=== PATIENT | female | born 1965 | race Caucasian/White ===

== ENCOUNTER → 2018-10-30 | Outpatient (CLI) | payer BC, OTHER ==
[~2018-10-30] MED LIST: 5-HY100C3 PO; ACET-1697 PO; ACET-2469 PO; ACET-2650 PO; ALBUNEBRX IH; ASPI-266 PO; ASPI-808 PO; ASPI-999 PO; ATOR40TA PO; BLAC20TA PO; BSP10T PO; CA C1TAB26 PO; CALC-787 PO; CALC-80 PO; CALC-83 PO; CETI10TA17 PO; CHOL100011 PO; CHOL10003 PO; CHOL200035 PO; CITA-105 PO; CITA40TA19 PO; CLNZ.5T PO; CLOP75TA28 PO; CPR500T PO; ESTR1TAB24 PO; FLUT1DIS26 IH; MELA10TA2 PO; METO-387 PO; MULT-608 PO; MULT-963 PO; NAPR-243 PO; OMEG1CAP51 PO; ONDA8TAB2 PO; OXYC-12 PO; PNT40TEC PO; POLY119P PO; QUET300T PO; QUET400T3 PO; TIOT18CA2 IH; TRAM50TA2 PO; [UNRECOGNIZED DRUG - CODE] PO
== END ==
LOC: CARD 12:09
PROVIDERS: ATTEND Internal Medicine Cardiovascular Disease
DX: J43.8 Other emphysema (principal); R07.89 Other chest pain; R00.2 Palpitations; I31.3 Pericardial effusion (noninflammatory); Z72.0 Tobacco use
CPT/HCPCS: 93225; 93226

== ENCOUNTER 2018-10-31 09:37 | Day surgery (SDC) | payer BC ==
[2018-10-31] VITALS (11 sets, daily range): BP systolic 109–138; BP diastolic 68–85
[~2018-10-31] VITALS: Ht 160 cm; Wt 56.2 kg
[~2018-10-31 09:37] MED LIST changes: -5-HY100C3 PO; -ACET-2469 PO; -ACET-2650 PO; -ASPI-808 PO; -ASPI-999 PO; -ATOR40TA PO; -BLAC20TA PO; -CLOP75TA28 PO; -MELA10TA2 PO; -METO-387 PO
--- OUTSIDE RECORDS SUMMARY | 2018-10-31 09:41 | XMS REPORT ---
Author ALFRED [facility] eClinicalWorks Address Unknown Phone Unavailable Care Team Providers Care Avionic Technician Name Role Phone ALFRED CASTANEDA CP Unavailable Allergies, Adverse Reactions, Alerts Substance Reaction Event Type Sulfamethoxazole Info Not Available Drug Allergy Penicillamine Info Not Available Drug Allergy Keflex Info Not Available Drug Allergy Iodine Info Not Available Drug Allergy Ibuprofen Info Not Available Drug Allergy Erythromycin Base Info Not Available Drug Allergy Shellfish Info Not Available Non Drug Allergy Problems Problem Type Condition Code Onset Dates Condition Status Assessment Hematuria, unspecified R31.9 Active Medications Medication Code System Code Instructions Start Date End Date Status Dosage Multivital [facility] [id number] - Orally not defined Anoro Ellipta [facility] [address]-32 62.5-25 MCG/INH Inhalation Once a day Sep 17, 2016 1 puff Zyrtec Allergy [facility] [address]-99 10 MG Orally Once a [place] 1 [place] [address]-87 1000 MG Orally Once a day 1 capsule Tylenol 8 Hour [facility] [address]-26 650 MG Orally every 8 hrs 2 tablets as needed Estroven ND 0 - Orally not defined Procedures Procedure Coding System Code Date Office Visit, Est Pt., Level 3 CPT-4 91173 Sep 17, 2016 URINALYSIS, AUTO, W/O SCOPE CPT-4 64808 Sep 17, 2016 Vital Signs Date/Time: Sep 17, 2016 Cardiac Monitoring Heart Rate 104 bpm Weight 146.8 lbs Height 63 in BMI 26.00 Index Blood Pressure Diastolic 81 mmHg Blood Pressure Systolic 117 mmHg Results Name Result Date Reference Range Unit Abnormality Flag UA LONG DIP (IN HOUSE) ----WALLY Negative 20160917 ----NIT Negative 20160917 ----Exp date 20160917 ----Lot # [id number] ----SG 1.020 20160917 ----KET Negative 20160917 ----KELIN Negative 20160917 ----GLU Negative 20160917 ----Odor None 20160917 ----pH 6.5 20160917 ----BLO Trace-Intact 20160917 ----URO 0.2 20160917 ----Protein Negative 20160917 ----Lot # [id number] ----Exp date 20160917 ----Clarity Clear 20160917 ----Color Yellow [id number] Summary Purpose eClinicalWorks Submission
--- OUTSIDE RECORDS SUMMARY | 2018-10-31 09:41 | XMS REPORT ---
Author Author ALFRED CASTANEDA Organization [facility] Address [address] [place] [address] Care Team Providers Care Spanish Interpreter Name Role Phone ALFRED CASTANEDA Unavailable PROBLEMS Type Condition ICD9-CM Code ZOU92-VA Code Onset Dates Condition Status SNOMED Code Assessment Urinary tract infection, site not specified N39.0 Jul, Active 54454785 Assessment Hematuria, unspecified R31.9 Jul, Active 17372996 ALLERGIES Substance Reaction Event Type Date Status N.K.D.A. Unknown Non Drug Allergy Jul, Unknown SOCIAL HISTORY No smoking Hx information available PLAN OF CARE VITAL SIGNS Height 63 in 2016-07-30 Weight 147.4 lbs 2016-07-30 Heart Rate 108 bpm 2016-07-30 Respiratory Rate 18 2016-07-30 BMI 26.11 kg/m2 2016-07-30 Blood pressure systolic 144 mmHg 2016-07-30 Blood pressure diastolic 92 mmHg 2016-07-30 MEDICATIONS Medication Instructions Dosage Frequency Start Date End Date Duration Status Estroven - Active Tylenol 8 Hour 650 MG Orally every 8 hrs 2 tablets as needed 8h Active Fish Oil 1000 MG Orally Once a day 1 capsule 24h Active Zyrtec Allergy 10 MG Orally Once a day 1 tablet 24h Active Multivital - Active Macrobid 100 MG Orally every 12 hrs 1 capsule with food 12h Jul, Jul, 7 day(s) Active RESULTS Name Result Date Reference Range UA LONG DIP (IN HOUSE) 2016-07-30 Lot # [id number] Exp date 06/2017 Clarity Clear Color Yellow Odor None GLU Negative KELIN Negative KET Negative SG 1.010 BLO Trace-Lysed pH 7.0 Protein Negative URO 0.2 NIT Negative WALLY Negative Lot # Exp date PROCEDURES Procedure Date Ordered Related Diagnosis Body Site Office Visit, Est Pt., Level 3 Jul 30, 2016 URINALYSIS, AUTO, W/O SCOPE Jul 30, 2016 IMMUNIZATIONS No Known Immunizations
--- OUTSIDE RECORDS SUMMARY | 2018-10-31 09:41 | XMS REPORT ---
Author Author IBETH PEÑA [facility] Address [address] [place] [address] Care Team Providers Care Core Placer Name Role Phone IBETH PEÑA Unavailable PROBLEMS Type Condition ICD9-CM Code MFY75-CO Code Onset Dates Condition Status SNOMED Code Problem Atrophic vaginitis N95.2 Active 05398316 Problem Chronic obstructive pulmonary disease, unspecified COPD type J44.9 Active 98913178 ALLERGIES Substance Reaction Event Type Date Status Sulfamethoxazole Unknown Drug Allergy Jul, Active Penicillamine Unknown Drug Allergy Jul, Active Keflex Unknown Drug Allergy Jul, Active Iodine Unknown Drug Allergy Jul, Active Ibuprofen Unknown Drug Allergy Jul, Active Erythromycin Base Unknown Drug Allergy Jul, Active Shellfish Unknown Non Drug Allergy Jul, Active ENCOUNTERS Encounter Location Date Diagnosis [place] [id number] [address] Jul, Atrophic vaginitis N95.2 ; Pain of right thumb M79.644 ; Right wrist pain M25.531 and Chronic obstructive pulmonary disease, unspecified COPD type J44.9 [facility] [address] [place] [id number] [place] [phone] Jul, [facility] [address] [place] [id number] [place] [phone] Jul, Cellulitis of finger of right hand L03.[address] [address] 08 Dec, 2017 Bronchitis J40 and Chronic obstructive pulmonary disease, unspecified COPD type J44.9 [place] [address] [address] Aug, Hematuria, unspecified R31.9 [facility] [address] [facility] [id number] [place] [address] Jul, Urinary tract infection, site not specified N39.0 and Hematuria, unspecified R31.9 IMMUNIZATIONS No Known Immunizations SOCIAL HISTORY Never Assessed REASON FOR VISIT Right thumb swelling started 3 days ago JStrasserRN PLAN OF CARE Activity Details Follow Up prn Reason: VITAL SIGNS Height 63 in 2018-08-10 Weight 123.0 lbs 2018-08-10 Temperature 99.4 degrees Fahrenheit 2018-08-10 Heart Rate 80 bpm 2018-08-10 Respiratory Rate 20 2018-08-10 BMI 21.79 kg/m2 2018-08-10 Blood pressure systolic 122 mmHg 2018-08-10 Blood pressure diastolic 80 mmHg 2018-08-10 MEDICATIONS Medication Instructions Dosage Frequency Start Date End Date Duration Status Zyrtec Allergy 10 MG Orally Once a day 1 tablet 24h Active Tylenol 8 Hour 650 MG Orally every 8 hrs 2 tablets as needed 8h Active Estroven - Active Doxycycline Hyclate 100 MG Orally every 12 hrs 1 capsule 12h 13 Jul, 2018 Jul, 10 day(s) Active RESULTS No Results PROCEDURES No Known procedures INSTRUCTIONS MEDICATIONS ADMINISTERED No Known Medications MEDICAL (GENERAL) HISTORY Type Description Date Medical History Seasonal allergic rhinitis, unspecified allergic rhinitis trigger Medical History COPD Medical History Stage 1 emphysema Surgical History appendectomy 1976 Surgical History bladder surgery 1981 Surgical History section 1985 & 1988 Surgical History tubal ligation 1988 Surgical History hysterectomy, vaginal 1989 Surgical History Heart Cath with Dr. Mota x 2 2010 & 2013 Surgical History Hiatial Hernia Repair 2013 Hospitalization History kidney stones
--- OUTSIDE RECORDS SUMMARY | 2018-10-31 09:41 | XMS REPORT ---
Author Author YUMIKO OWENS [facility] Address [address] [place] [address] Care Team Providers Care Cargo Agent Name Role Phone YUMIKO OWENS Unavailable PROBLEMS Type Condition ICD9-CM Code SNQ99-AY Code Onset Dates Condition Status SNOMED Code Problem Atrophic vaginitis N95.2 Active 87625864 Problem Chronic obstructive pulmonary disease, unspecified COPD type J44.9 Active 39441129 ALLERGIES No Information ENCOUNTERS Encounter Location Date Diagnosis [place] [address] [place] [id number] [place] [address] Jul, Atrophic vaginitis N95.2 ; Pain of right thumb M79.644 ; Right wrist pain M25.531 and Chronic obstructive pulmonary disease, unspecified COPD type J44.9 [facility] [address] [place] [id number] [place] [phone] Jul, [facility] [address] [place] [id number] [place] [phone] Jul, Cellulitis of finger of right hand L03.[address] [place] [address] [place] [id number] [place] [phone] Dec, Bronchitis J40 and Chronic obstructive pulmonary disease, unspecified COPD type J44.9 [place] [id number] [place] [phone] Aug, Hematuria, unspecified R31.9 [place] [id number] [place] [phone] Jul, Urinary tract infection, site not specified N39.0 and Hematuria, unspecified R31.9 IMMUNIZATIONS No Known Immunizations SOCIAL HISTORY Never Assessed REASON FOR VISIT right thumb swollen et painful. currently taking antibiotic. joselin cano was seen here 4 days ago for this same thing. will get an appt with PCP...pt verbalized understanding. 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 appt scheduled this tuesday...with angel crespo, at 0920. PLAN OF CARE VITAL SIGNS Height 63 in 2018-08-14 Weight 124.0 lbs 2018-08-14 Temperature 98.0 degrees Fahrenheit 2018-08-14 Heart Rate 84 bpm 2018-08-14 Respiratory Rate 20 2018-08-14 BMI 21.96 kg/m2 2018-08-14 Blood pressure systolic 120 mmHg 2018-08-14 Blood pressure diastolic 76 mmHg 2018-08-14 MEDICATIONS Medication Instructions Dosage Frequency Start Date End Date Duration Status Doxycycline Hyclate 100 MG Orally every 12 hrs 1 capsule 12h Jul, Jul, 10 day(s) Active Tylenol 8 Hour 650 MG Orally every 8 hrs 2 tablets as needed 8h Active Zyrtec Allergy 10 MG Orally Once a day 1 tablet 24h Active Estroven - Active RESULTS No Results PROCEDURES No Known [...]
--- OUTSIDE RECORDS SUMMARY | 2018-10-31 09:41 | XMS REPORT ---
Author Author ALEXANDRA KIMBALL [facility] Address [address] [place] [address] Care Team Providers Care Glass Cutter Name Role Phone ALEXANDRA KIMBALL Unavailable PROBLEMS ALLERGIES ENCOUNTERS IMMUNIZATIONS No Known Immunizations SOCIAL HISTORY No smoking Hx information available REASON FOR VISIT PLAN OF CARE VITAL SIGNS MEDICATIONS RESULTS PROCEDURES INSTRUCTIONS MEDICATIONS ADMINISTERED No Known Medications MEDICAL (GENERAL) HISTORY
--- OUTSIDE RECORDS SUMMARY | 2018-10-31 09:42 | XMS REPORT | Continuity of Care Document ---
Author Author [facility] Organization [facility] Address Unknown Phone Unavailable Allergies Active Description Code Type Severity Reaction Onset Reported/Identified Relationship to Patient Clinical Status Yes "MYCINS" "MYCINS" Unknown HIVES, SWELLING 01/29/2013 Yes Iodinated Contrast Media - IV Dye [id number] Drug Allergy Unknown N/A 01/29 Yes Penicillins [id number] Drug Allergy Unknown HIVES 01/29/2013 Yes Sulfa (Sulfonamide Antibiotics) [id number] Drug Allergy Unknown HIVES, N/V 01/29/2013 Yes codeine [id number] Drug Allergy Severe ANAPHYLAXIS 03/26/2013 Yes Cephalexin Monohydrate [id number] Drug Allergy Moderate HIVES, N/V 2012 Yes latex [id number] Drug Allergy Moderate RASH 03/26/2013 Medications There is no data. Problems Date Dx Coded Attending Type Code Diagnosis Diagnosed By 01/31/2013 Ot 592.0 01/31/2013 Ot 592.1 01/31/2013 Ot 788.30 03/26/2013 EVERTON GEORGE, LEATHA Ot 300.00 03/26/2013 EVERTON GEORGE, LEATHA Ot 305.1 03/26/2013 EVERTON GEORGE, LEATHA Ot 553.3 03/26/2013 EVERTON GEORGE, LEATHA Ot 786.50 03/26/2013 EVERTON GEORGE, LEATHA Ot V13.01 03/26/2013 EVERTON GEORGE, LEATHA Ot V17.49 03/26/2013 EVERTON GEORGE, LEATHA Ot V45.77 03/26/2013 EVERTON GEORGE, LEATHA Ot V58.69 12/12/2014 JORDAN ESTRADA DO Ot 305.1 12/12/2014 JORDAN ESTRADA DO Ot 786.09 01/21/2015 Ot 272.4 01/21/2015 Ot 305.1 01/21/2015 Ot 423.9 01/21/2015 Ot 496 01/21/2015 Ot 786.09 01/21/2015 Ot 786.59 01/21/2015 Ot V58.69 05/29/2015 Ot 592.0 05/29/2015 Ot 592.1 05/29/2015 Ot V72.84 05/29/2015 Ot V74.8 05/29/2015 MIGDALIA GEORGE, ANDRY Craft Ot 423.9 05/29/2015 MIGDALIA GEORGE, ANDRY Craft Ot 423.9 05/29/2015 MIGDALIA GEORGE, ANDRY Craft Ot 423.9 05/29/2015 ANDRY NEGRON MD Ot 423.9 05/29/2015 VENECIA GEORGE [facility]AC[facility] Ot 414.00 05/29/2015 VENECIA GEORGE FAC, ALI FACP CCDS Ot 423.9 05/29/2015 JORDAN ESTRADA DO M Ot 305.1 05/29/2015 JORDAN ESTRADA DO M Ot 786.09 05/29/2015 JORDAN ESTRADA DO M Ot 305.1 05/29/2015 JORDAN ESTRADA DO M Ot 492.8 05/29/2015 NATALIE LUO JORDAN M Ot 786.09 05/29/2015 [facility]EC[facility]GE [facility] Ot 414.00 05/29/2015 VENECIA GEORGE FAC, [facility] Ot 423.9 05/29/2015 JORDAN ESTRADA DO M Ot 305.1 05/29/2015 JORDAN ESTRADA DO M Ot 786.09 05/29/2015 JORDAN ESTRADA DO M Ot 305.1 05/29/2015 JORDAN ESTRADA DO M Ot 492.8 05/29/2015 JORDAN ESTRADA DO M Ot 786.09 07/08/2015 Ot 592.0 07/08/2015 Ot 592.1 07/08/2015 Ot V72.84 07/08/2015 Ot V74.8 07/08/2015 MIGDALIA GEORGE, ANDRY Craft Ot 423.9 07/08/2015 MIGDALIA GEORGE, ANDRY Craft Ot 423.9 07/08/2015 MIGDALIA GEORGE, ANDRY Craft Ot 423.9 07/08/2015 MIGDALIA GEORGE, ANDRY Craft Ot 423.9 07/08/2015 VENECIA GEORGE FAC, [facility] CCDS Ot 414.00 07/08/2015 JAMIE CUADRA MD, FACC, FACP CCDS Ot 423.9 07/08/2015 NATALIE LUO JORDAN Dru Ot 305.1 07/08/2015 NATALIE LUO JORDAN M Ot 786.09 07/08/2015 JORDAN ESTRADA DO Dru Ot 305.1 07/08/2015 JORDAN ESTRADA DO Dru Ot 492.8 07/08/2015 NATALIE LUO JORDAN Dru Ot 786.09 Procedures There is no data. Results There is no data. Encounters ACCT No. Visit Date/Time Discharge Status Pt. Type Provider Facility Loc./Unit Complaint [id number] 01/01/2015 10:28:00 01/01/2015 23:59:59 CLS Outpatient JORDAN ESTRADA DO [facility] RAD [id number] 10/28/2014 15:43:00 10/28/2014 23:59:59 CLS Outpatient JORDAN ESTRADA DO [facility] RT [id number] 07/26/2014 11:19:00 07/26/2014 23:59:59 CLS Outpatient JAMIE CUADRA MD, FACC, FACP CCDS [facility] CARD [id number] 03/21/2014 13:05:00 03/21/2014 23:59:59 CLS Outpatient ANDRY NEGRON MD [facility] CARD [id number] 03/11/2014 12:10:00 03/11/2014 23:59:59 CLS Outpatient ANDRY NEGRON MD [facility] RAD [id number] 02/18/2014 10:50:00 02/18/2014 23:59:59 CLS Outpatient ANDRY NEGRON MD [facility] LAB [id number] 02/18/2014 08:21:00 02/18/2014 23:59:59 CLS Outpatient ANDRY NEGRON MD [facility] CARD [id number] 03/26/2013 09:40:00 03/26/2013 18:00:00 DIS Outpatient LEATHA TOSCANO MD [facility] [id number] 05/29/2015 14:57:00 Document Registration [id number] 01/17/2015 09:37:00 Document Registration [id number] 01/17/2015 09:37:00 Document Registration [id number] 01/29/2013 14:12:00 Document Registration [id number] 01/05/2018 14:40:00 01/05/2018 23:59:59 [facility]
[2018-10-31] MEDS ORDERED: LIDOCAINE 1% INJ 20 ML 20 ML VIAL ONE (09:47)
[2018-10-31] MEDS ORDERED: NS IV 1000 ML 1,000 ML ONE (09:47)
[2018-10-31] MEDS ORDERED: HEParin (CATH LAB) 2,000 ML IV ONE (09:47)
[2018-10-31] MEDS ORDERED: NS IV 1000 ML 1,000 ML IV SCH (10:00)
[2018-10-31 10:16] LABS: HEMOGLOBIN 14.5 G/DL (11.5-16.0); MEAN PLATELET VOLUME 11.5 FL (7.4-10.4); RED BLOOD COUNT 4.68 10^6/uL (4.35-5.85); RED CELL DISTRIBUTION WIDTH 13.1 % (10.0-14.5); WHITE BLOOD COUNT 21.4 10^3/uL (4.3-11.0)
[2018-10-31 10:28] LABS: INR 0.9 (0.8-1.4); PROTHROMBIN TIME PATIENT 12.5 SEC (12.2-14.7)
[2018-10-31] MEDS ORDERED: METO-387 PO (10:28)
[2018-10-31] MEDS ORDERED: BLAC20TA PO (10:29)
[2018-10-31] MEDS ORDERED: ACET-2650 PO (10:29)
[2018-10-31] MEDS ORDERED: ACET-2469 PO (10:30)
[2018-10-31] MEDS ORDERED: 5-HY100C3 PO (10:30)
[2018-10-31] MEDS ORDERED: MELA10TA2 PO (10:30)
[2018-10-31] MEDS ORDERED: ASPI-808 PO (10:31)
[2018-10-31 10:38] LABS: ALANINE AMINOTRANSFERASE 11 U/L (0-55); ALBUMIN 4.3 GM/DL (3.2-4.5); ALKALINE PHOSPHATASE 70 U/L (40-136); BILIRUBIN,TOTAL 0.2 MG/DL (0.1-1.0); BUN/CREATININE RATIO 25; CALCIUM 9.6 MG/DL (8.5-10.1); CARBON DIOXIDE 23 MMOL/L (21-32); CHLORIDE 110 MMOL/L (98-107); CHOLESTEROL 216 MG/DL (< 200); CREATININE SERUM 0.75 MG/DL (0.60-1.30); GFR ESTIMATED > 60; GLUCOSE 123 MG/DL (70-105); HDL CHOLESTEROL 45 MG/DL (40-60); POTASSIUM 4.1 MMOL/L (3.6-5.0); SODIUM 143 MMOL/L (135-145); TOTAL PROTEIN 7.1 GM/DL (6.4-8.2); TRIGLYCERIDES 79 MG/DL (<150); VLDL CHOLESTEROL 16 MG/DL (5-40)
[2018-10-31] MEDS ORDERED: fentaNYL INJECTION 100 MCG/2 ML AMP ONE (10:38)
[2018-10-31] MEDS ORDERED: diphenhydrAMINE 50 MG/ML INJ (BENADRYL) ONE (10:38)
[2018-10-31] MEDS ORDERED: MIDAZOLAM 5 MG/5 ML (VERSED) VIAL ONE (10:38)
[2018-10-31] MEDS ORDERED: FLU QUADRIvalent (5+ YOA) 2018-2019 (AFLURIA) 0.5 ML IM ONE (11:00)
[2018-10-31] MEDS ORDERED: HEParin 1000 UNIT/ML (10ML VIAL) FOR BOLUS ONE (11:05)
[2018-10-31] MEDS ORDERED: NITRO DRIP 25000 MCG/D5W 0 ML IV ONE (11:05)
[2018-10-31] MEDS ORDERED: EPTIFIBATIDE BOLUS 10 ML IV ONE (11:05)
[2018-10-31] MEDS ORDERED: ASPIRIN 81 MG CHEW (CHILDREN'S ASA) ONE (11:25)
[2018-10-31] MEDS ORDERED: CLOPIDOGREL 300 MG (PLAVIX) TABLET PO ONE (11:25)
--- NOTE | 2018-10-31 11:43 | Cardiac Procedure Note-CS/ASA ---
Pre-Procedure Note Pre-Op Procedure Note H&P Reviewed The H&P was reviewed, patient examined and no changes noted. Date H&P Reviewed: Oct 31, 2018 Time H&P Reviewed: 11:00 Conscious Sedation Pre-Proced Time 11:00 ASA Score 3 For ASA 3 and 4: Consider anesthesia and medical clearance. Also, for patients with a history of failed moderate sedation consider anesthesia. Airway Lungs Heart ASA score ASA 1: a normal healthy patient ASA 2: a patient with a mild systemic disease (mid diabetes, controlled hypertension, obesity ASA 3: a patient with a severe systemic disease that limits activity (angina , COPD, prior Myocardial infarction) ASA 4: a patient with an incapacitating disease that is a constant threat to life (CHF, renal failure) ASA 5: a moribund patient not expected to survive 24 hrs. (ruptured aneurysm) ASA 6: a declared brain patient whose organs are being harvested. For emergent operations, add the letter E after the classification Mallampati Classification Grade 2 Sedation Plan Analgesia, Amnesia, Plan communicated to team members, Discussed options with patient/fam, Discussed risks with patient/fam The patient is an appropriate candidate to undergo the planned procedure, sedation, and anesthesia. The patient immediately re-assessed prior to indication. JAMIE CUADRA MD FACP FAC CCDS Oct 31, 2018 11:43
[2018-10-31] MEDS ORDERED: TEMAZEPAM 7.5 MG CAP (RESTORIL) PO PRN (11:45)
[2018-10-31] MEDS ORDERED: PATIENT MAY USE OWN MEDS, ALL PO SCH (11:45)
--- NOTE | 2018-10-31 14:02 | CARDIAC CATHETERIZATION ---
DATE OF SERVICE: 10/31/2018 CARDIAC CATHETERIZATION AND CORONARY INTERVENTION REPORT The patient is a 52-year-old lady, who has multiple coronary artery disease risk factors and who has been experiencing symptoms of unstable angina. Cardiac catheterization was carried out today after having obtained informed consent. PROCEDURE IN DETAIL: She was brought to the cardiac catheterization laboratory in a fasting state. Right groin was prepared and draped in the usual sterile fashion. Lidocaine 1% was used for local anesthesia. Modified Seldinger technique was used to advance a 5-Finnish sheath in the right femoral artery. We used 5-Finnish JL4 catheter for left coronary angiography and 5-Finnish JR4 catheter for right coronary angiography. We used 5-Finnish pigtail catheter for left heart catheterization, left ventricular angiography. We subsequently proceeded with percutaneous intervention to the proximal and mid left anterior descending artery. Informed consent for ad hoc coronary intervention had been obtained prior to initiation of the cardiac catheterization procedure. PERCUTANEOUS INTERVENTION OF THE LEFT ANTERIOR DESCENDING ARTERY: The left anterior descending artery had 75% mid vessel stenosis and 50% proximal stenosis with haziness. We exchanged the sheath over a wire for a 6-Finnish sheath. We gave 5000 units of intravenous heparin and a double bolus of Integrilin. We used a 6-Finnish JL4 guide catheter. We advanced a BMW wire across the lesions and the tip was placed in the distal vessel. We advanced Xience Martina 2.75 x 28 mm stent to cover both lesions. The stent was deployed at 20 atmospheres achieving a final stent lumen size of 3.03. The first diagonal branch that was of a small caliber was jailed by the stent, but is patent with normal antegrade flow. Flow throughout the vessel is normal. The patient tolerated the procedure well. Angioplasty equipment was removed. Angiography of the right femoral artery had been carried out at the time of sheath insertion. At the end of the procedure, Mynx was used to achieve hemostasis. She tolerated the procedure well. HEMODYNAMICS: Left ventricular end-diastolic pressure following coronary angiography was 19 mmHg. There was no significant pressure gradient on pullback across the aortic valve. Ascending aortic pressure was 141/73 with a mean of 84 mmHg. CORONARY ANGIOGRAPHY: Left main coronary artery is free of significant disease. Left anterior descending artery had approximately 50% proximal stenosis with haziness and approximately 75% mid vessel stenosis just following the origin of the first diagonal branch. Both these lesions were stented with one Xience Martina 2.75 x 28 mm stent that was deployed at 20 atmospheres. Flow throughout the vessel is normal. The left circumflex artery does not exhibit significant disease. The right coronary artery is dominant and does not exhibit significant disease. LEFT VENTRICULAR ANGIOGRAPHY: Left ventricular angiography was carried out in the right anterior oblique projection. Global left ventricular systolic function is normal. No regional wall motion abnormalities are seen. Left ventricular ejection fraction is approximately 60%. There does not appear to be significant mitral regurgitation. CONCLUSIONS: 1. Single vessel coronary artery disease consisting of 75% mid vessel stenosis and 50% proximal stenosis with haziness in the left anterior descending artery. These lesions were stented with a Xience 2.75 x 28 mm stent that was deployed at 20 atmospheres. The other coronary vessels do not exhibit significant obstructive disease. 2. Normal global left ventricular systolic function with ejection fraction of approximately 60%. 3. Elevated left ventricular end-diastolic pressure. 4. No significant mitral regurgitation. DISCUSSION AND RECOMMENDATIONS: Risk factor modification has been reviewed. She has been advised to quit smoking immediately and completely. Dual antiplatelet therapy has been added to the regimen. She is being hospitalized for overnight observation. Job ID: [id number] DocumentID: [id number] Dictated Date: 10/31/2018 11:36:36 Watch Assembly Inspector Date: 10/31/2018 14:01:37 Dictated By: JAMIE CUADRA MD, MA, FACP, FACC, MTDD
[2018-10-31] MEDS ORDERED: ACETAMINOPHEN 650 MG PO PRN (14:45)
[2018-10-31] MEDS: NS IV 1000 ML 1,000 ML IV SCH ×2 (19:25→22:02)
[2018-10-31] MEDS ORDERED: ATORVASTATIN 40 MG (LIPITOR) TABLET PO SCH (21:00)
[2018-10-31] MEDS ORDERED: MELATONIN 10 MG PO SCH (21:00)
[2018-10-31] MEDS ORDERED: APAP/DIPHENHYDRAMINE (TYLENOL PM) TAB NON-FORMULARY PO SCH (21:00)
[2018-11-01 03:49] LABS: HEMOGLOBIN 12.6 G/DL (11.5-16.0); MEAN PLATELET VOLUME 11.2 FL (7.4-10.4); RED BLOOD COUNT 4.15 10^6/uL (4.35-5.85); WHITE BLOOD COUNT 16.1 10^3/uL (4.3-11.0)
[2018-11-01 03:50] VITALS: BP 126/87
[2018-11-01 04:09] LABS: BUN/CREATININE RATIO 22; CALCIUM 9.1 MG/DL (8.5-10.1); CARBON DIOXIDE 22 MMOL/L (21-32); CHLORIDE 110 MMOL/L (98-107); CREATININE SERUM 0.67 MG/DL (0.60-1.30); GFR ESTIMATED > 60; GLUCOSE 99 MG/DL (70-105); POTASSIUM 3.7 MMOL/L (3.6-5.0); SODIUM 142 MMOL/L (135-145)
--- NOTE | 2018-11-01 07:56 | Progress Note-Cardiology ---
Cardiology SOAP Progress Note Objective: I&O/Vital Signs Weight (Pounds): 124 Weight (Ounces): 0.0 Weight (Calculated Kilograms): 56.685084 Results/Procedures: Labs Microbiology 10/31/18 MRSA Screen - Final, Complete MRSA not isolated A/P: Assessment: Single vessel coronary artery disease consisting of 75% mid vessel stenosis and 50% proximal stenosis with haziness in the left anterior descending artery. These lesions were stented with a Xience 2.75 x 28 mm stent that was deployed at 20 atmospheres. The other coronary vessels do not exhibit significant obstructive disease. Normal global left ventricular systolic function with ejection fraction of approximately 60%. Elevated left ventricular end-diastolic pressure.No significant mitral regurgitation. Per cardiac cath of 10-31-18 Echo 02/18/14 and 03/21/14 show mild to mod pericard eff, stable, hemodynamically insignificant. Last echo on 01/21/15 showed unchanged pericard eff, hemodynamically insignificatn, normal LVEF of 55%, and normal PASP Chronic small pericardial effusion which was seen again on CT of the chest of 2014 Normal bilat carotid doppler on on 02/13/14 at the [facility] Occ marijuana use H/o anxiety and psychosis, currently controlled on current meds Chronic tobacco use from which cessation has been advised DJD Hyperlipidemia Intolerance to statins COPD - follows with Dr. Silver Renal cysts which she is following with her PCP ALPHONSO CLARKE Nov 01, 2018 07:56
[2018-11-01 08:29] VITALS: BP 127/78
[2018-11-01] MEDS ORDERED: ATOR40TA PO (08:52)
[2018-11-01] MEDS ORDERED: ASPI-999 PO (08:52)
[2018-11-01] MEDS ORDERED: CLOP75TA28 PO (08:52)
--- NOTE | 2018-11-01 08:54 | Discharge Inst-Cardiology ---
Discharge Inst-Cardiac Discharge Medications New Medications: Aspirin (Aspirin) 81 Mg Tab.chew 81 MG PO DAILY, #30 TAB 5 Refills Atorvastatin Calcium (Lipitor) 40 Mg Tablet 40 MG PO HS, #30 TAB 5 Refills Clopidogrel Bisulfate (Clopidogrel) 75 Mg Tablet 75 MG PO DAILY, #30 TAB 5 Refills Continued Medications: 5-Hydroxytryptophan (5-Htp) 100 Mg Capsule 100 MG PO DAILY, CAP Acetaminophen (Tylenol Arthritis) 650 Mg Tablet.er 1700 MG PO Q8H PRN for PAIN-MILD, TAB Acetaminophen/Diphenhydramine (Tylenol Pm Ex-Strength Caplet) 1 Each Tablet 1 EACH PO HS, TAB Black Cohosh Root (Menopause Support) 20 Mg Tablet 20 MG PO DAILY, TAB Cetirizine Hcl (Cetirizine Hcl) 10 Mg Tablet 10 MG PO DAILY Melatonin (Melatonin) 10 Mg Tablet 10 MG PO HS, TAB Metoprolol Succinate (Metoprolol Succinate) 25 Mg Tab.er.24h 25 MG PO DAILY, TAB Discontinued Medications: Aspirin (Aspirin) 325 Mg Tablet 325 MG PO DAILY, TAB New, Converted or Re-Newed RX: Transmitted to Pharmacy Patient Instructions Patient Instructions: Please schedule follow up appointment to see Dr. Mota in 2 weeks ALPHONSO CLARKE Nov 01, 2018 08:54
[2018-11-01] MEDS ORDERED: ceTIRizine 10 MG (ZyrTEC) TAB NON-FORMULARY PO SCH (09:00)
[2018-11-01] MEDS ORDERED: HYDROXYTRYPTOPHAN 100 MG PO SCH (09:00)
[2018-11-01] MEDS ORDERED: ASPIRIN 81 MG CHEW (CHILDREN'S ASA) PO SCH (09:00)
[2018-11-01] MEDS ORDERED: CLOPIDOGREL 75 MG (PLAVIX) TABLET PO SCH (09:00)
--- NOTE | 2018-11-01 12:09 | Progress Note-Cardiology ---
Cardiology SOAP Progress Note Subjective: No cp or palp or syncope or shortness of breath Notes bruising in the R groin at site access, but no lower extremity discomfort Objective: I&O/Vital Signs 11/01/18 11/01/18 11/01/18 11/01/18 01:00 03:50 07:00 08:29 Temp 97.2 98.1 Pulse 80 69 60 72 Resp 20 14 B/P (MAP) 126/87 (100) 127/78 (94) Pulse Ox 100 98 O2 Delivery Room Air Room Air 11/01/18 11/01/18 08:50 10:42 B/P (MAP) Pulse Ox 98 O2 Delivery Room Air 11/01/18 00:00 Intake Total 1500 ml Balance 1500 ml Weight (Pounds): 124 Weight (Ounces): 0.0 Weight (Calculated Kilograms): 56.018914 Condition: DP/PT pulses palpable Swelling: mild amount of swelling Bruising: large amount of bruising Constitutional: AAO x 3, well-developed, well-nourished Respiratory: No accessory muscle use; lungs clear to percussion, lungs clear to auscultation Cardiovascular: irregularly irregular, S1 and S2, systolic murmur (soft BEAR at card base) Gastrointestional: No tender; soft; No guarding, No rebound; audible bowel sounds Extremities: No clubbing, No cyanosis, No significant edema Neurologic/Psychiatric: oriented x 3, grossly intact, power is 5/5 both on sides Skin: No rash on exposed areas, No ulcerations on exposed areas Results/Procedures: Labs Laboratory Tests 11/01/18 03:27: White Blood Count 16.1H, Red Blood Count 4.15L, Hemoglobin 12.6, Hematocrit 39, Mean Corpuscular Volume 93, Mean Corpuscular Hemoglobin 30, Mean Corpuscular Hemoglobin Concent 33, Red Cell Distribution Width 13.0, Platelet Count 188, Mean Platelet Volume 11.2H, Sodium Level 142, Potassium Level 3.7, Chloride Level 110H, Carbon Dioxide Level 22, Anion Gap 10, Blood Urea Nitrogen 15, Creatinine 0.67, Estimat Glomerular Filtration Rate > 60, BUN/Creatinine Ratio 22, Glucose Level 99, Calcium Level 9.1 Laboratory Tests 10/31/18 10:06 11/01/18 03:27 A/P: Assessment: CAD. Card cath of 10-31-18: Single vessel coronary artery disease consisting of 75% mid vessel stenosis and 50% proximal stenosis with haziness in the left anterior descending artery. These lesions were stented with a Xience 2.75 x 28 mm stent that was deployed at 20 atmospheres. The other coronary vessels do not exhibit significant obstructive disease. Normal global left ventricular systolic function with ejection fraction of approximately 60%. Elevated left ventricular end-diastolic pressure.No significant mitral regurgitation Echo 02/18/14 and 03/21/14 showed mild to mod pericard eff, stable, hemodynamically insignificant. Last echo on 01/21/15 showed unchanged pericard eff, hemodynamically insignificatn, normal LVEF of 55%, and normal PASP Chronic small pericardial effusion which was seen again on CT of the chest of 2014 Normal bilat carotid doppler on on 02/13/14 at the [facility] Occ marijuana use H/o anxiety and psychosis, currently controlled on current meds Chronic tobacco use from which cessation has been advised DJD Hyperlipidemia Intolerance to statins COPD - follows with Dr. Silver Renal cysts which she is following with her PCP Leucocytosis of undetermined etiology, improved today, f/u and w/u and treatment advised with pcp Plan: * I discussed in detail her cor anatomy, interventions undertaken, and future treatment plan with her and answered questions * We discussed the pros and cons of current meds and advised compliance * We have advised f/u on leucocytosis (improved today) with her pcp * We have advised immediate and complete smoking cessation and other risk factor modification * Close outpatient f/u is advised for now JAMIE CUADRA MD [facility] Nov 01, 2018 12:09
== END 2018-11-01 10:42 | disposition home or self-care (01) ==
LOC: CATH 09:37 → ICU 11:57 → CATH 11-01 10:42
PROVIDERS: ATTEND Internal Medicine Cardiovascular Disease
DX: I25.10 Atherosclerotic heart disease of native coronary artery without angina pectoris (principal); E78.5 Hyperlipidemia, unspecified; J44.9 Chronic obstructive pulmonary disease, unspecified; F17.210 Nicotine dependence, cigarettes, uncomplicated; M19.91 Primary osteoarthritis, unspecified site; F41.9 Anxiety disorder, unspecified; I31.3 Pericardial effusion (noninflammatory); Z79.899 Other long term (current) drug therapy
CPT/HCPCS: 36415; 80048; 80053; 80061; 85027; 85610; 85730; 87081; 93005; 93458

== ENCOUNTER 2018-11-05 11:52 | Emergency (ER) | payer BC ==
[~2018-11-05] VITALS: Ht 160 cm; Wt 56.7 kg
[~2018-11-05 11:52] MED LIST changes: +5-HY100C3 PO; +ACET-2469 PO; +ACET-2650 PO; +ASPI-808 PO; +ASPI-999 PO; +ATOR40TA PO; +BLAC20TA PO; +CLOP75TA28 PO; +MELA10TA2 PO; +METO-387 PO
--- NOTE | 2018-11-05 12:38 | ED General ---
General Chief Complaint: General Problems/Pain Stated Complaint: POST-SURGERY COMPLICATIONS Nursing Triage Note: Pt had stent placement last tuesday. Pt was seen [place] [facility] last night/this morning and was told that she had bleeding in groin. She decided to come back here where her surgery was done. Pt does have groin pain. Nursing Sepsis Screen: No Definite Risk Source of Information: Patient Exam Limitations: No Limitations History of Present Illness Date Seen by Provider: Nov 05, 2018 Time Seen by Provider: 12:35 Initial Comments To ER with reports of bleeding from the right groin. Patient had a coronary stent placed here on Tuesday of this past week. She was seen at [facility] last night will event. She had been started on metoprolol after the stent placement and became hypotensive last night. She was admitted for observation and had a CT without contrast of the right groin region this morning which showed hematoma but no evidence of active bleeding interpreted by primary care provider and discharged to home . Radiologist then over read the CT report and was concerned about active bleeding in the right groin. She was called at home and advised to be reevaluated. Timing/Duration: 1-2 Days Severity: Moderate Allergies and Home Medications Allergies Coded Allergies: codeine (Unverified Allergy, Severe, ANAPHYLAXIS, 03/26/13) shellfish derived (Unverified Allergy, Severe, ANAPHYLAXIS, 10/31/18) Cephalexin Monohydrate (Unverified Allergy, Intermediate, HIVES, N/V, 03/26) latex (Verified Allergy, Intermediate, RASH, 03/26/13) Iodinated Contrast- Oral and IV Dye (Unverified Allergy, Unknown, 10/31/18) Penicillins (Unverified Allergy, Unknown, HIVES, 10/31/18) Sulfa (Sulfonamide Antibiotics) (Unverified Allergy, Unknown, HIVES, N/V, 10/31/18) Uncoded Allergies: "MYCINS" (Allergy, Unknown, HIVES, SWELLING TONGUE, THRUSH, YEAST INFECTIONS, 10/31/18) Home Medications 5-Hydroxytryptophan 100 Mg Capsule, 100 MG PO DAILY, (Reported) Acetaminophen 650 Mg Tablet.er, 1,700 MG PO Q8H PRN for PAIN-MILD, (Reported) Acetaminophen/Diphenhydramine 1 Each Tablet, 1 EACH PO HS, (Reported) Aspirin 81 Mg Tab.chew, 81 MG PO DAILY Prescribed by: ALPHONSO CLARKE on 11/01/18851 Atorvastatin Calcium 40 Mg Tablet, 40 MG PO HS Prescribed by: ALPHONSO CLARKE on 11/01/18851 Black Cohosh Root 20 Mg Tablet, 20 MG PO DAILY, (Reported) Cetirizine Hcl 10 Mg Tablet, 10 MG PO DAILY, (Reported) Clopidogrel Bisulfate 75 Mg Tablet, 75 MG PO DAILY Prescribed by: ALPHONSO CLARKE on 11/01/18851 Melatonin 10 Mg Tablet, 10 MG PO HS, (Reported) Metoprolol Succinate 25 Mg Tab.er.24h, 25 MG PO DAILY, (Reported) Patient Home Medication List Home Medication List Reviewed: Yes Review of Systems Review of Systems Constitutional: see HPI EENTM: see HPI Respiratory: no symptoms reported Cardiovascular: no symptoms reported Genitourinary: no symptoms reported Musculoskeletal: no symptoms reported Skin: no symptoms reported Psychiatric/Neurological: No Symptoms Reported Hematologic/Lymphatic: No Symptoms Reported Past Eijpyeo-Prmbom-Ohaeyi Hx Patient Social History Alcohol Use: Denies Use Recreational Drug Use: No Smoking Status: Current Everyday Smoker Recent Foreign Travel: No Contact w/Someone Who Travel: No Recent Infectious Disease Expo: No Recent Hopitalizations: No Physical Abuse: No Sexual Abuse: No Mistreated: No Fear: No Immunizations Up To Date Date of Pneumonia Vaccine: Nov 05, 2018 Date of Influenza Vaccine: Nov 05, 2018 Past Medical History Surgeries: Yes (; stent placements) Appendectomy, Hysterectomy Respiratory: Yes (chronic bronchitis) Chronic Bronchitis Cardiac: Yes (angina) Neurological: No Kidney Stones Gastrointestinal: Yes (diverticulits, hiatal hernia,gerd) Gastroesophageal Reflux, Hiatal Hernia Musculoskeletal: Yes Degenerate Disk Disease, Arthritis, Chronic Back Pain Endocrine: No Cancer: Yes (l groin area, skin) Psychosocial: Yes (EXTENSIVE PSYCH ISSUES) Anxiety, Depression Integumentary: Yes (RECENT " SKIN LESIONS" REMOVED FROM GENITAL AREA) Blood Disorders: No Physical Exam Vital Signs Vital Signs - First Documented 11/05/18 12:10 Temp 97.6 Pulse 78 Resp 18 B/P (MAP) 126/83 (97) Pulse Ox 99 O2 Delivery Room Air Capillary Refill : Less Than 3 Seconds Height, Weight, BMI Height: 5'3.00" Weight: 125lbs. 0.0oz. 56.114808se; 22.0 BMI Method:Stated General Appearance: No Apparent Distress, WD/WN Eyes: Bilateral Eye Normal Inspection, Bilateral Eye PERRL, Bilateral Eye EOMI HEENT: PERRL/EOMI Neck: Full Range of Motion, Normal Inspection Respiratory: No Accessory Muscle Use, No Respiratory Distress Gastrointestinal: Normal Bowel Sounds, Non Tender, Soft Extremity: Normal Capillary Refill, Normal Inspection, Other (significant ecchymosis to the medial aspect of the right leg extending inferiorly down to the mid calf. There is a firm nodule to the right groin but it is not pulsatile. ) Neurologic/Psychiatric: Alert, Oriented x3 Skin: Normal Color, Warm/Dry Progress/Results/Core Measures Suspected Sepsis Recent Fever Within 48 Hours: No Infection Criteria Present: None New/Unexplained Altered Menta: No Sepsis Screen: No Definite Risk SIRS Temperature:97.6 Pulse: 78 Respiratory Rate: 18 Laboratory Tests 11/05/18 12:42: White Blood Count 12.4H Blood Pressure 126 /83 Mean: 97 Laboratory Tests 11/05/18 12:42: Creatinine 0.70, Platelet Count 168, Total Bilirubin 0.5 Results/Orders Lab Results Laboratory Tests Test 11/05/18 12:42 Range/Units White Blood Count 12.4 H 4.3-11.0 10^3/uL Red Blood Count 3.60 L 4.35-5.85 10^6/uL Hemoglobin 10.8 L 11.5-16.0 G/DL Hematocrit 34 L 35-52 % Mean Corpuscular Volume 95 80-99 FL Mean Corpuscular Hemoglobin 30 25-34 PG Mean Corpuscular Hemoglobin Concent 32 32-36 G/DL Red Cell Distribution Width 13.1 10.0-14.5 % Platelet Count 168 130-400 10^3/uL Mean Platelet Volume 11.5 H 7.4-10.4 FL Neutrophils (%) (Auto) 74 42-75 % Lymphocytes (%) (Auto) 15 12-44 % Monocytes (%) (Auto) 10 0-12 % Eosinophils (%) (Auto) 1 0-10 % Basophils (%) (Auto) 0 0-10 % Neutrophils # (Auto) 9.1 H 1.8-7.8 X 10^3 Lymphocytes # (Auto) 1.8 1.0-4.0 X 10^3 Monocytes # (Auto) 1.3 H 0.0-1.0 X 10^3 Eosinophils # (Auto) 0.2 0.0-0.3 10^3/uL Basophils # (Auto) 0.0 0.0-0.1 10^3/uL Sodium Level 141 135-145 MMOL/L Potassium Level 3.7 3.6-5.0 MMOL/L Chloride Level 111 H 98-107 MMOL/L Carbon Dioxide Level 20 L 21-32 MMOL/L Anion Gap 10 5-14 MMOL/L Blood Urea Nitrogen 13 7-18 MG/DL Creatinine 0.70 0.60-1.30 MG/DL Estimat Glomerular Filtration Rate > 60 BUN/Creatinine Ratio 19 Glucose Level 91 70-105 MG/DL Calcium Level 8.8 8.5-10.1 MG/DL Corrected Calcium 9.0 8.5-10.1 MG/DL Total Bilirubin 0.5 0.1-1.0 MG/DL Aspartate Amino Transf (AST/SGOT) 11 5-34 U/L Alanine Aminotransferase (ALT/SGPT) 8 0-55 U/L Alkaline Phosphatase 54 40-136 U/L Total Protein 6.0 L 6.4-8.2 GM/DL Albumin 3.7 3.2-4.5 GM/DL My Orders Orders - ARLENE RO APRN Cbc With Automated Diff (11/05/18 12:20) Comprehensive Metabolic Panel (11/05/18 12:20) Iv Heplock-Insert (Order) (11/05/18 12:20) Diphenhydramine Injection (Benadryl Inje (11/05/18 12:45) Methylprednisolone Sod Succ (Solu-Medrol (11/05/18 12:45) Famotidine Injection (Pepcid Injection) (11/05/18 12:45) Ns Iv 500 Ml (Sodium Chloride 0.9%) (11/05/18 12:45) Cta Aorta W Romario Runoff W/Wo (11/05/18 12:49) Iohexol Injection (Omnipaque 350 Mg/Ml 1 (11/05/18 13:15) Contrast Received (Contrast Received) (11/05/18 13:15) Sodium Chloride Flush (Catheter Flush Sy (11/05/18 13:15) Ns (Ivpb) (Sodium Chloride 0.9%) (11/05/18 13:15) Medications Given in ED Current Medications Medications Dose Ordered Sig/Telma Route Start Time Stop Time Status Last Admin Dose Admin Diphenhydramine HCl 25 mg ONCE ONCE IVP 11/05/18 12:45 11/05/18 12:46 DC 11/05/18 13:08 25 MG Famotidine 20 mg ONCE ONCE IVP 11/05/18 12:45 11/05/18 12:46 DC 11/05/18 13:01 20 MG Iohexol 100 ml ONCE ONCE IV 11/05/18 13:15 11/05/18 13:16 DC 11/05/18 13:34 100 ML Methylprednisolone Sodium Succinate 125 mg ONCE ONCE IVP 11/05/18 12:45 11/05/18 12:46 DC 11/05/18 13:01 125 MG Sodium Chloride 10 ml NEEDED PRN IV 11/05/18 13:15 11/05/18 13:34 10 ML Sodium Chloride 250 ml ONCE ONCE IV 11/05/18 13:15 11/05/18 13:16 DC 11/05/18 13:34 80 ML Vital Signs/I&O 11/05/18 12:10 Temp 97.6 Pulse 78 Resp 18 B/P (MAP) 126/83 (97) Pulse Ox 99 O2 Delivery Room Air Capillary Refill : Less Than 3 Seconds Blood Pressure Mean: 97 Departure Communication (Admissions) Family Conversation [id number] discussed the case with Dr. Hollingsworth. Discussed the CT findings and recommendation for Doppler. He would recommend having one of the nurses hold direct pressure 2 finger widths superior to the puncture site in the right groin then ambulate patient, if no recurrent syncope or other concerns discharged home with follow-up in the clinic tomorrow. She may discontinue the beta roberta today and he will reevaluate the need for tomorrow during her visit. Continue aspirin Plavix. I obtained the CT report from [facility] that was done this morning at 9:18 AM. The impression shows a moderate-sized hematoma in the right groin. Planes between the hematoma and underlying from oral vessels are obscured and active bleeding from the underlying tomorrow vessels cannot be excluded. This could be further evaluated with arterial Doppler or CT with contrast. Hematoma does not extend up into the pelvis and there are no apparent bony abnormalities. I discussed with the patient reported allergy to IV contrast. She states that she was able to receive IV contrast during the heart catheter during we medicated with steroids. I proposed the same here dose of IV steroids Pepcid and Benadryl and Solu-Medrol and proceed with CT abdomen and right groin with IV contrast Impression Primary Impression: Postoperative hematoma involving circulatory system following cardiac catheterization Disposition: HOME, SELF-CARE Condition: Stable Departure-Patient Inst. Decision time for Depature: 14:16 Referrals: SOSA JUDGE MD (PCP/Family) Primary Care Physician Patient Instructions: HEMATOMA Add. Discharge Instructions: 1. This is a hematoma, a collection of blood in the soft tissues. This will reabsorb over the next couple of weeks. It will take a couple of weeks to improve. Continue with all restrictions given to you by Dr. Mota time of the heart catheter. Call his office tomorrow to make an appointment for follow-up. Return to ER for any lightheadedness, shortness of breath or general weakness. All discharge instructions reviewed with patient and/or family. Voiced understanding. Copy Copies To 1: JAMIE MOTA MD FACP FACC RODERICKS ARLENE RO APRN Nov 05, 2018 12:38
[2018-11-05] MEDS ORDERED: FAMOTIDINE 20MG/2ML IV (PEPCID) IVP ONE (12:45)
[2018-11-05] MEDS ORDERED: methylPREDNISolone 125 MG (Solu-MEDROL) VIAL IVP ONE (12:45)
[2018-11-05] MEDS ORDERED: NS IV 500 ML 500 ML IV SCH (12:45)
[2018-11-05] MEDS ORDERED: diphenhydrAMINE 50 MG/ML INJ (BENADRYL) IVP ONE (12:45)
[2018-11-05 12:48] LABS: BASOPHILS % (AUTO) 0 % (0-10); EOSINOPHILS # (AUTO) 0.2 10^3/uL (0.0-0.3); EOSINOPHILS % (AUTO) 1 % (0-10); HEMATOCRIT 34 % (35-52); HEMOGLOBIN 10.8 G/DL (11.5-16.0); LYMPHOCYTES # (AUTO) 1.8 X 10^3 (1.0-4.0); LYMPHOCYTES % (AUTO) 15 % (12-44); MEAN CORPUSCULAR HEMOGLOBIN 30 PG (25-34); MEAN CORPUSCULAR HGB CONC 32 G/DL (32-36); MEAN CORPUSCULAR VOLUME 95 FL (80-99); MEAN PLATELET VOLUME 11.5 FL (7.4-10.4); MONOCYTES # (AUTO) 1.3 X 10^3 (0.0-1.0); MONOCYTES % (AUTO) 10 % (0-12); NEUTROPHILS # (AUTO) 9.1 X 10^3 (1.8-7.8); NEUTROPHILS % (AUTO) 74 % (42-75); PLATELET COUNT 168 10^3/uL (130-400); RED CELL DISTRIBUTION WIDTH 13.1 % (10.0-14.5); WHITE BLOOD COUNT 12.4 10^3/uL (4.3-11.0)
[2018-11-05 13:09] LABS: ALANINE AMINOTRANSFERASE 8 U/L (0-55); ALBUMIN 3.7 GM/DL (3.2-4.5); ALKALINE PHOSPHATASE 54 U/L (40-136); BILIRUBIN,TOTAL 0.5 MG/DL (0.1-1.0); BUN/CREATININE RATIO 19; CALCIUM 8.8 MG/DL (8.5-10.1); CARBON DIOXIDE 20 MMOL/L (21-32); CHLORIDE 111 MMOL/L (98-107); GFR ESTIMATED > 60; GLUCOSE 91 MG/DL (70-105); POTASSIUM 3.7 MMOL/L (3.6-5.0); SODIUM 141 MMOL/L (135-145)
[2018-11-05] MEDS ORDERED: RECEIVED CONTRAST (Hold Metformin) IV SCH (13:15)
[2018-11-05] MEDS ORDERED: CATHETER FLUSH 10 ML SYR IV PRN (13:15)
[2018-11-05] MEDS ORDERED: NS 250 ML (IVPB) BAG IV ONE (13:15)
[2018-11-05] MEDS ORDERED: IOHEXOL 350 MG/ML 100 ML (OMNIPAQUE 350) VIAL IV ONE (13:15)
--- NOTE | 2018-11-05 14:22 | Diagnostic Imaging Report ---
Indication: Groin pain since heart catheterization performed 5 days ago. Technique: CT imaging of the abdomen, pelvis and proximal legs following the administration of intravenous contrast. MIP reformatted images. Correlation study: None Findings: The abdominal aorta demonstrates a mild peripheral plaque and calcification. No aneurysm. The celiac trunk, superior mesenteric artery, bilateral renal arteries, inferior mesenteric artery are patent at their origins. There is atheromatous change about the bifurcation. The bilateral common iliac arteries demonstrate mild to moderate scattered wall calcification and plaque but otherwise patent without significant stenosis. The bilateral external and internal iliac arteries are patent but also demonstrate mild wall calcification. There is rather prominent asymmetric edema and soft tissue density about the right inguinal region as well as diffuse edema about the proximal thigh. There is very mild wall calcification about the right common femoral artery. The small branches in and around the right groin are noted. Definitive abnormal contrast extravasation not visualized. Mixed, somewhat heterogeneous masslike area about the right inguinal region is likely reflective of a prominent hematoma. This area measures approximately 4 x 2.8 cm. Superficial femoral and profunda femoral artery are patent. On the left, very mild calcification of the left common femoral artery. Superficial femoral artery and profunda femoral artery are patent. Inferior epigastric arteries are patent. On delayed imaging, there is some irregular contrast venous filling suggested. Possibility of venous extravasation would be difficult to exclude on this study. Lung bases clear demonstrate interstitial emphysematous changes. There is reflux of contrast into the inferior vena cava and hepatic veins. There is a heterogeneous attenuation liver parenchyma. A few probable small cyst incompletely characterizes. The gallbladder is contracted. Pancreas is unremarkable. Spleen unremarkable. Slight hypertrophy of the adrenal glands particularly on the left. Right adrenal gland not well-visualized, largely obscured by multiple cystic masses about the super pole of the right kidney. Left kidney unremarkable. Bilateral collecting systems are unremarkable. Gastrointestinal tract demonstrates no obstruction or inflammation. Urinary bladder is unremarkable. The uterus is absent. No significant hemoperitoneum or retroperitoneal fluid collections. IMPRESSION: 1. CTA of the abdominal aorta and pelvis demonstrates mild atheromatous changes. No significant large vessel occlusion or stenosis. 2. There is rather pronounced asymmetric edema about the right inguinal region and proximal thigh with what appears to be more focal likely hematoma in the right inguinal region at the presumed puncture site. Several small enhancing vessels do appear to be present in this region. Definitive abnormal contrast blush and/or arterial phase enhancement however does not appear to be present. The possibility of venous phase enhancement with venous bleed would be difficult to exclude. There does appear to be a prominent sized hematoma. 3. Given the overall findings, right groin Doppler assessment would be recommended. 4. No significant retroperitoneal hematoma. There is however rather extensive edema about the proximal right leg. Dictated by: Dictated on workstation # [id number]
[2018-11-05 15:04] VITALS: BP 138/99
== END 2018-11-05 15:04 | disposition home or self-care (01) ==
LOC: EDUNIT# 11:52 → ER 11:53
DX: I97.630 Postprocedural hematoma of a circulatory system organ or structure following a cardiac catheterization (principal); J42 Unspecified chronic bronchitis; K21.9 Gastro-esophageal reflux disease without esophagitis; F41.9 Anxiety disorder, unspecified; F32.9 Major depressive disorder, single episode, unspecified; F17.200 Nicotine dependence, unspecified, uncomplicated; Z95.5 Presence of coronary angioplasty implant and graft; Z87.442 Personal history of urinary calculi; Z87.19 Personal history of other diseases of the digestive system; Z90.710 Acquired absence of both cervix and uterus; Z90.49 Acquired absence of other specified parts of digestive tract; Z88.5 Allergy status to narcotic agent; Z91.040 Latex allergy status; Z91.041 Radiographic dye allergy status; Z88.2 Allergy status to sulfonamides; Z88.8 Allergy status to other drugs, medicaments and biological substances; Z88.0 Allergy status to penicillin; Z79.82 Long term (current) use of aspirin; Z79.02 Long term (current) use of antithrombotics/antiplatelets
CPT/HCPCS: 36415; 75635; 80053; 85025

== ENCOUNTER → 2018-11-13 | Outpatient (CLI) | payer BC ==
[2018-11-13 11:53] LABS: BASOPHILS % (AUTO) 0 % (0-10); EOSINOPHILS # (AUTO) 0.2 10^3/uL (0.0-0.3); EOSINOPHILS % (AUTO) 1 % (0-10); HEMATOCRIT 40 % (35-52); LYMPHOCYTES # (AUTO) 1.9 X 10^3 (1.0-4.0); LYMPHOCYTES % (AUTO) 12 % (12-44); MEAN CORPUSCULAR HEMOGLOBIN 31 PG (25-34); MEAN CORPUSCULAR HGB CONC 32 G/DL (32-36); MEAN CORPUSCULAR VOLUME 95 FL (80-99); MEAN PLATELET VOLUME 10.4 FL (7.4-10.4); MONOCYTES # (AUTO) 0.9 X 10^3 (0.0-1.0); MONOCYTES % (AUTO) 5 % (0-12); NEUTROPHILS # (AUTO) 12.9 X 10^3 (1.8-7.8); NEUTROPHILS % (AUTO) 81 % (42-75); PLATELET COUNT 289 10^3/uL (130-400); RED BLOOD COUNT 4.21 10^6/uL (4.35-5.85); RED CELL DISTRIBUTION WIDTH 13.8 % (10.0-14.5); WHITE BLOOD COUNT 15.9 10^3/uL (4.3-11.0)
[2018-11-13 12:23] LABS: BUN/CREATININE RATIO 19; CALCIUM 9.7 MG/DL (8.5-10.1); CARBON DIOXIDE 25 MMOL/L (21-32); CHLORIDE 106 MMOL/L (98-107); CREATININE SERUM 0.79 MG/DL (0.60-1.30); GFR ESTIMATED > 60; GLUCOSE 100 MG/DL (70-105); MAGNESIUM 2.3 MG/DL (1.8-2.4); POTASSIUM 4.3 MMOL/L (3.6-5.0); SODIUM 141 MMOL/L (135-145)
[2018-11-13 12:38] LABS: BAND NEUTROPHILS 1 %; BASOPHILS % (MANUAL) 0 %; ELLIPT/OVALOCYTES SLIGHT; EOSINOPHILS % (MANUAL) 2 %; LYMPHOCYTES % (MANUAL) 8 %; MONOCYTES % (MANUAL) 5 %; NEUTROPHILS % (MANUAL) 84 %
--- NOTE | 2018-11-13 22:19 | Diagnostic Imaging Report ---
EXAM: Right lower extremity ultrasound. DATE: November 13, 2018. INDICATION: 52-year-old female, evaluation for right inguinal hematoma after catheterization. COMPARISON: CT November 05, 2018. FINDINGS: Targeted ultrasound of the right inguinal region was performed. There is an oval mildly hypoechoic masslike area measuring 3.3 x 2.9 x 1.2 cm in size without demonstrated internal blood flow most likely reflecting a hematoma. There do not appear to be provided images targeted for evaluation of pseudoaneurysm although no pseudoaneurysm is demonstrated. There are no provided waveforms in the vessels with nondiagnostic assessment for arteriovenous fistula. IMPRESSION: 1. Oval mildly hypoechoic masslike area in the right inguinal region measuring 3.3 x 2.9 x 1.2 cm in size, most likely relating to hematoma given provided history. 2. No demonstrated pseudoaneurysm although there do not appear to be targeted images provided for pseudoaneurysm and no specific comment regarding whether or not there is or isn't a pseudoaneurysm by the tissue technologist. 3. No spectral Doppler waveforms were performed to assess for arteriovenous fistula. Dictated by: Dictated on workstation # [id number]
== END ==
LOC: RAD 11:03
PROVIDERS: ATTEND Internal Medicine Cardiovascular Disease
DX: S30.1XXA Contusion of abdominal wall, initial encounter (principal); I25.10 Atherosclerotic heart disease of native coronary artery without angina pectoris; R00.2 Palpitations; J43.9 Emphysema, unspecified; Z72.0 Tobacco use
CPT/HCPCS: 36415; 76881; 80048; 83735; 85007; 85027

== ENCOUNTER → 2018-12-20 | Outpatient (CLI) | payer BC ==
[2018-12-20 15:22] LABS: ABSOLUTE RETIC # 41 10e9/L (24-90); BASOPHILS % (AUTO) 0 % (0-10); EOSINOPHILS # (AUTO) 0.1 10^3/uL (0.0-0.3); EOSINOPHILS % (AUTO) 1 % (0-10); HEMATOCRIT 43 % (35-52); HEMOGLOBIN 13.6 G/DL (11.5-16.0); LYMPHOCYTES # (AUTO) 1.5 X 10^3 (1.0-4.0); LYMPHOCYTES % (AUTO) 11 % (12-44); MEAN CORPUSCULAR HEMOGLOBIN 30 PG (25-34); MEAN CORPUSCULAR HGB CONC 32 G/DL (32-36); MEAN CORPUSCULAR VOLUME 96 FL (80-99); MONOCYTES # (AUTO) 1.1 X 10^3 (0.0-1.0); MONOCYTES % (AUTO) 8 % (0-12); NEUTROPHILS # (AUTO) 11.3 X 10^3 (1.8-7.8); NEUTROPHILS % (AUTO) 81 % (42-75); PLATELET COUNT 230 10^3/uL (130-400); RED CELL DISTRIBUTION WIDTH 13.1 % (10.0-14.5); RETICULOCYTE % 0.92 % (0.50-2.40)
[2018-12-20 15:54] LABS: BAND NEUTROPHILS 0 %; LYMPHOCYTES % (MANUAL) 9 %; NEUTROPHILS % (MANUAL) 80 %
[2018-12-20 15:55] LABS: BASOPHILS % (MANUAL) 1 %; EOSINOPHILS % (MANUAL) 0 %; MONOCYTES % (MANUAL) 8 %; RBC MORPH NORMAL; REACTIVE LYMPHOCYTES 2 %
== END ==
LOC: LABNPT 15:11
PROVIDERS: ATTEND Family Medicine
DX: D72.829 Elevated white blood cell count, unspecified (principal)
CPT/HCPCS: 85007; 85027; 85045

== ENCOUNTER → 2018-12-26 | Outpatient (CLI) | payer BC ==
[~2018-12-26] VITALS: Ht 160 cm; Wt 57.6 kg
[~2018-12-26] MED LIST changes: +CATHETER FLUSH 10 ML SYR IV PRN
[2018-12-26 09:26] VITALS: BP 147/78
--- NOTE | 2018-12-26 14:35 | STRESS TEST ---
DATE OF SERVICE: 12/26/2018 RESTING AND POST EXERCISE TECHNETIUM-99M TETROFOSMIN SPECT CT IMAGING ORDERING PHYSICIAN: Rebecca Jiang APRN. PRIMARY CARE PHYSICIAN: Dr. Conroy. CLINICAL DIAGNOSIS: Chest discomfort and coronary artery disease. Baseline images were carried out after injection of 10.65 mCi of technetium-99m Tetrofosmin. This was followed by exercise on a treadmill. Saud protocol was employed. Heart rate and blood pressure responses to exercise were normal. There was considerable baseline artifact at peak exercise and this makes the interpretation of ST segments difficult. There did not appear to be significant ST segment change in the immediate post-exercise phase. The patient received 29.2 mCi of technetium-99m Tetrofosmin at peak exercise after she had attained approximately 80% of maximum predicted heart rate and the exercise was continued for approximately 35 seconds afterwards. The test had to be stopped on account of fatigue. No significant arrhythmia was seen. Review of images at rest and following stress does not indicate any significant perfusion defects consistent with significant myocardial ischemia or infarction. Gated images show normal global left ventricular systolic function with normal regional wall motion. Left ventricular ejection fraction is calculated to be 60%. Left ventricular end diastolic volume is 61 mL. TID is absent (1.07). CONCLUSIONS: 1. This study does not indicate significant myocardial ischemia to approximately 80% of maximum predicted heart rate. 2. Normal global left ventricular systolic function with an ejection fraction of approximately 60%. 3. No evidence of myocardial infarction. 4. No significant regional wall motion is seen on this study. Job ID: [id number] DocumentID: [id number] Dictated Date: 12/26/2018 13:13:22 [employer] Date: 12/26/2018 14:35:15 Dictated By: JAMIE CUADRA MD, MA, FACP, FACC,
== END ==
LOC: CARD 07:12
PROVIDERS: ATTEND Nurse Practitioner Family
DX: R07.89 Other chest pain (principal); I25.10 Atherosclerotic heart disease of native coronary artery without angina pectoris; R06.09 Other forms of dyspnea; I77.89 Other specified disorders of arteries and arterioles
CPT/HCPCS: 78452; 93017

== ENCOUNTER 2019-10-02 08:07 | Day surgery (SDC) | payer BC ==
[~2019-10-02] VITALS: Ht 160 cm; Wt 62.7 kg
[2019-10-02] VITALS (10 sets, daily range): BP systolic 106–131; BP diastolic 69–91
[~2019-10-02 08:07] MED LIST changes: -CATHETER FLUSH 10 ML SYR IV PRN
[2019-10-02] MEDS ORDERED: NS IV 1000 ML 1,000 ML ONE (08:10)
[2019-10-02] MEDS ORDERED: NS IV 1000 ML 1,000 ML IV SCH ×2 (08:10→10:49)
[2019-10-02] MEDS ORDERED: HEParin (CATH LAB) 2,000 ML IV ONE (08:10)
[2019-10-02] MEDS ORDERED: LIDOCAINE 1% INJ 20 ML 20 ML VIAL ONE (08:10)
[2019-10-02 08:40] LABS: HEMOGLOBIN 14.6 G/DL (11.5-16.0); MEAN PLATELET VOLUME 11.2 FL (7.4-10.4); RED CELL DISTRIBUTION WIDTH 13.8 % (10.0-14.5); WHITE BLOOD COUNT 17.7 10^3/uL (4.3-11.0)
[2019-10-02 08:52] LABS: INR 0.9 (0.8-1.4); PROTHROMBIN TIME PATIENT 12.5 SEC (12.2-14.7)
[2019-10-02 08:56] LABS: ALANINE AMINOTRANSFERASE 23 U/L (0-55); ALBUMIN 4.4 GM/DL (3.2-4.5); ALKALINE PHOSPHATASE 84 U/L (40-136); BILIRUBIN,TOTAL 0.3 MG/DL (0.1-1.0); BUN/CREATININE RATIO 21; CALCIUM 9.4 MG/DL (8.5-10.1); CARBON DIOXIDE 21 MMOL/L (21-32); CHLORIDE 107 MMOL/L (98-107); CHOLESTEROL 148 MG/DL (< 200); CREATININE SERUM 0.81 MG/DL (0.60-1.30); GFR ESTIMATED > 60; GLUCOSE 135 MG/DL (70-105); HDL CHOLESTEROL 45 MG/DL (40-60); POTASSIUM 4.1 MMOL/L (3.6-5.0); SODIUM 140 MMOL/L (135-145); TOTAL PROTEIN 7.1 GM/DL (6.4-8.2); TRIGLYCERIDES 44 MG/DL (<150); VLDL CHOLESTEROL 9 MG/DL (5-40)
[2019-10-02] MEDS ORDERED: ASPI-999 PO (09:15)
[2019-10-02] MEDS ORDERED: CLOP75TA69 PO (09:15)
[2019-10-02] MEDS ORDERED: CITA20TA12 PO (09:15)
[2019-10-02] MEDS ORDERED: ATOR40TA PO (09:15)
[2019-10-02] MEDS ORDERED: PEDI1TAB29 PO (09:18)
[2019-10-02] MEDS ORDERED: CETI10TA17 PO (09:18)
[2019-10-02] MEDS ORDERED: BLAC540C4 PO (09:18)
--- NOTE | 2019-10-02 09:24 | NUR ---
SPOKE WITH PT (SHE HAD HER BOTTLES TO COMPLETE THE MED REC. THE PT WAS ABLE TO TELL ME ALL HER MEDS & WHEN/HOW SHE TAKES EACH ONE. THE FOLLOWING ARE FILL DATES FROM [facility]: 08-31-2019 METOPROLOL #30/30DS 08-31-2019 ASPIRIN #36/36DS 08-31-2019 ATORVASTATIN #30/30DS 09-27-2019 CLOPIDOGREL #30/30DS 09-28-2019 CITALOPRAM #/30DS OTC MEDS: TYLENOL PM TYLENOL ARTHRITIS BLACK COHOSH CETIRIZINE MELATONIN GUMMY MTV
[2019-10-02] MEDS ORDERED: FLU QUADRIvalent (5+ YOA) 2019-2020 (AFLURIA) 0.5 ML IM ONE (09:45)
[2019-10-02] MEDS ORDERED: diphenhydrAMINE 50 MG/ML INJ (BENADRYL) ONE (09:57)
[2019-10-02] MEDS ORDERED: fentaNYL INJECTION 100 MCG/2 ML AMP ONE (09:57)
[2019-10-02] MEDS ORDERED: MIDAZOLAM 5 MG/5 ML (VERSED) VIAL ONE (09:57)
--- NOTE | 2019-10-02 10:09 | Cardiac Procedure Note-CS/ASA ---
Pre-Procedure Note Pre-Op Procedure Note H&P Reviewed The H&P was reviewed, patient examined and no changes noted. Date H&P Reviewed: Oct 02, 2019 Time H&P Reviewed: 10:08 Conscious Sedation Pre-Proced Time 10:08 ASA Score 3 For ASA 3 and 4: Consider anesthesia and medical clearance. Also, for patients with a history of failed moderate sedation consider anesthesia. Airway Lungs Heart ASA score ASA 1: a normal healthy patient ASA 2: a patient with a mild systemic disease (mid diabetes, controlled hypertension, obesity ASA 3: a patient with a severe systemic disease that limits activity (angina, COPD, prior Myocardial infarction) ASA 4: a patient with an incapacitating disease that is a constant threat to life (CHF, renal failure) ASA 5: a moribund patient not expected to survive 24 hrs. (ruptured aneurysm) ASA 6: a declared brain- patient whose organs are being harvested. For emergent operations, add the letter E after the classification Mallampati Classification Grade 2 Sedation Plan Analgesia, Amnesia, Plan communicated to team members, Discussed options with patient/fam, Discussed risks with patient/fam The patient is an appropriate candidate to undergo the planned procedure, sedation, and anesthesia. The patient immediately re-assessed prior to indication. JAMIE CUADRA MD FACP FAC CCDS Oct 02, 2019 10:08 POS
--- NOTE | 2019-10-02 10:52 | Discharge Inst-Cardiology ---
Discharge Inst-Cardiac Discharge Medications Continued Medications: Acetaminophen (Tylenol Arthritis) 650 Mg Tablet.er 1300 MG PO Q8H PRN for PAIN-MILD, TAB Acetaminophen/Diphenhydramine (Tylenol Pm Ex-Strength Caplet) 1 Each Tablet 1 EACH PO HS, TAB Aspirin (Aspirin) 81 Mg Tab.chew 81 MG PO DAILY, TAB Atorvastatin Calcium (Lipitor) 40 Mg Tablet 40 MG PO HS, TAB Black Cohosh (Black Cohosh) 540 Mg Capsule 540 MG PO HS, CAP Cetirizine HCl (Cetirizine HCl) 10 Mg Tablet 10 MG PO DAILY, TAB Citalopram Hydrobromide (Celexa) 20 Mg Tablet 20 MG PO HS, TAB Clopidogrel Bisulfate (Plavix) 75 Mg Tablet 75 MG PO DAILY, TAB Melatonin (Melatonin) 10 Mg Tablet 20 MG PO HS, TAB TAKES 2 (10MG) TABS AT BEDTIME Metoprolol Succinate (Metoprolol Succinate) 25 Mg Tab.er.24h 25 MG PO DAILY, TAB Pediatric Multivitamin Comb#30 (Gummies Children Multivitamin) 1 Each Tab.chew 2 EACH PO HS, TAB Patient Instructions Patient Instructions: FOLLOW UP WITH YOUR FAMILY PHYSICIAN SOON POSSIBLE FOR AN ELEVATED WHITE COUNT JAMIE CUADRA MD FACP FACC CCDS Oct 02, 2019 10:52 POS
--- NOTE | 2019-10-02 10:55 | Discharge Inst-Post CATH ---
Discharge Inst-CATH/EP Post Cardiac Cath/EP D/C Inst Follow Up/Plan Follow up with family physician within 2 days for evaluation and treatment of elevated white count Follow up with Dr Mota in 1-2 weeks NO SMOKING ACTIVITY * Go Home directly and rest. * Limit activity of the leg (or wrist if it was used) for 7 days including aerobics, swimming, jogging, bicycling, etc. * Restrict stair-climbing for 7 days if possible, if not, climb up with your non-cath leg, then bring together on the same step. * Avoid lifting, pushing, pulling or excessive movement of the affected extremity for 7 days. * Customary sexual activity may be resumed after 2 days-use caution not to use a position that strains or causes pain to the affected extremity. * No driving for 24 hours. * NO SMOKING. * Avoid straining for bowel movements for 7 days. * Gentle walking on level ground is allowed. * Returning to work will depend on the type of procedure and the results. Your doctor will discuss this with you. CALL YOUR DOCTOR FOR ANY OF THE FOLLOWING: *If bleeding from the puncture site occurs- Apply gentle pressure to site with clean cloth and call your doctor or EMS. * If a knot or lump forms under the skin, increases in size, or causes pain. * If bruising appears to be worsening or moving further down your leg instead of disappearing. * Temperature above 101 F. CARE OF YOUR GROIN INCISION; * Bruising or purple discoloration of the skin near the puncture site is common. * You may shower only, no bathtub bathing for 5 days. Be careful to avoid slipping as your leg may feel stiff. * If a closure device was used on your femoral artery, please see the attached guide regarding care of the device and your leg. * Leave dressing on FOR 24 hours. CARE OF YOUR WRIST INCISION; * Bruising or purple discoloration of the skin near the puncture site is common. * You may shower. * DO NOT submerge wrist. * Leave dressing on FOR 24 hours. JAMIE MOTA MD FAC FAC CCDS Oct 02, 2019 10:55 POS
[2019-10-02] MEDS ORDERED: PATIENT MAY USE OWN MEDS, ALL PO SCH (11:00)
--- NOTE | 2019-10-02 11:21 | CARDIAC CATHETERIZATION ---
DATE OF SERVICE: 10/02/2019 CARDIAC CATHETERIZATION REPORT The patient is a 53-year-old lady, who is known to have coronary artery disease and who has had stenting of the left anterior descending in 2018. She has been experiencing chest discomfort similar to what she was experiencing prior to her coronary stenting. Cardiac catheterization was recommended. Informed consent was obtained. PROCEDURE IN DETAIL: She was brought to the cardiac catheterization laboratory in a fasting state. Right groin was prepared and draped in the usual sterile fashion. Lidocaine 1% was used for local anesthesia. Modified Seldinger technique was used to advance a 5-Australian sheath in the right femoral artery. A 5-Australian JL4 catheter for left coronary angiography, 5-Australian JR4 catheter for right coronary angiography, 5-Australian pigtail catheter was used for left heart catheterization and left ventricular angiography. At the end of the procedure, angiography of the right femoral artery was carried out through the sheath. Mynx was used to achieve hemostasis. She tolerated the procedure well. HEMODYNAMICS: Left ventricular end-diastolic pressure following coronary angiography was 10 mmHg. There is no significant pressure gradient on pullback across the aortic valve. Ascending aortic pressure was 120/69 with a mean of 92 mmHg. CORONARY ANGIOGRAPHY: Left main coronary artery is free of significant disease. Left anterior descending artery has a widely patent stent in its mid portion without any significant in-stent restenosis. Left circumflex artery does not exhibit significant disease. Right coronary artery does not exhibit significant disease. LEFT VENTRICULAR ANGIOGRAPHY: Left ventricular angiography was carried out in the right anterior oblique projection. Global left ventricular systolic function is normal. Left ventricular ejection fraction is 50 to 55%. CONCLUSIONS: 1. Widely patent stent in the mid left anterior descending that is known to be Alpine Xience 2.75 x 28 mm placed in 10/2018. The coronary vessels do not exhibit significant obstructive disease. 2. Normal global left ventricular systolic function with an ejection fraction of approximately 60%. 3. Normal left ventricular end-diastolic pressure. DISCUSSION AND RECOMMENDATIONS: Risk factor modification has been reviewed. Based on the results of the study, it appears appropriate to continue a conservative approach. We are asking her to continue her previous cardiac regimen, including dual antiplatelet therapy. Outpatient followup is advised. We have advised her to quit smoking immediately and completely. Job ID: [id number] DocumentID: [id number] Dictated Date: 10/02/2019 10:34:15 Certified Medical Transcriptionist Date: 10/02/2019 11:20:48 Dictated By: JAMIE CUADRA MD, MA, FACP, FACC,
== END 2019-10-02 14:00 | disposition home or self-care (01) ==
LOC: CATH 08:07 → SDC 10:51 → CATH 14:00
PROVIDERS: ATTEND Internal Medicine Cardiovascular Disease
DX: I25.10 Atherosclerotic heart disease of native coronary artery without angina pectoris (principal); I51.9 Heart disease, unspecified; I31.9 Disease of pericardium, unspecified; J44.9 Chronic obstructive pulmonary disease, unspecified; F12.90 Cannabis use, unspecified, uncomplicated; F17.200 Nicotine dependence, unspecified, uncomplicated; Z88.1 Allergy status to other antibiotic agents; Z88.5 Allergy status to narcotic agent; Z88.8 Allergy status to other drugs, medicaments and biological substances; Z88.2 Allergy status to sulfonamides; Z88.6 Allergy status to analgesic agent; Z88.0 Allergy status to penicillin; Z91.013 Allergy to seafood; Z91.040 Latex allergy status; Z79.82 Long term (current) use of aspirin; Z79.899 Other long term (current) drug therapy; Z79.02 Long term (current) use of antithrombotics/antiplatelets; Z90.89 Acquired absence of other organs; Z90.710 Acquired absence of both cervix and uterus; Z82.49 Family history of ischemic heart disease and other diseases of the circulatory system; Z83.3 Family history of diabetes mellitus
CPT/HCPCS: 36415; 80053; 80061; 85027; 85610; 85730; 87081; 93458

== ENCOUNTER 2019-12-13 13:40 | Outpatient (RCR) | payer BC ==
[~2019-12-13 13:40] MED LIST changes: -ACET-2469 PO; +ACET-2715 PO; +BLAC540C4 PO; +CITA20TA12 PO; +CLOP75TA69 PO; -METO-387 PO; +MTP25TSR PO; +PEDI1TAB29 PO
[2019-12-13 14:09] LABS: BASOPHILS % (AUTO) 0 % (0-10); EOSINOPHILS # (AUTO) 0.2 10^3/uL (0.0-0.3); EOSINOPHILS % (AUTO) 3 % (0-10); HEMATOCRIT 42 % (35-52); HEMOGLOBIN 13.7 G/DL (11.5-16.0); LYMPHOCYTES # (AUTO) 2.7 X 10^3 (1.0-4.0); LYMPHOCYTES % (AUTO) 32 % (12-44); MEAN CORPUSCULAR HEMOGLOBIN 31 PG (25-34); MEAN CORPUSCULAR HGB CONC 33 G/DL (32-36); MEAN CORPUSCULAR VOLUME 95 FL (80-99); MEAN PLATELET VOLUME 10.9 FL (7.4-10.4); MONOCYTES # (AUTO) 0.7 X 10^3 (0.0-1.0); MONOCYTES % (AUTO) 8 % (0-12); NEUTROPHILS # (AUTO) 4.8 X 10^3 (1.8-7.8); NEUTROPHILS % (AUTO) 57 % (42-75); PLATELET COUNT 209 10^3/uL (130-400); RED CELL DISTRIBUTION WIDTH 13.2 % (10.0-14.5); WHITE BLOOD COUNT 8.4 10^3/uL (4.3-11.0)
[2019-12-13 14:26] LABS: ALANINE AMINOTRANSFERASE 22 U/L (0-55); ALBUMIN 4.5 GM/DL (3.2-4.5); ALKALINE PHOSPHATASE 69 U/L (40-136); BILIRUBIN,TOTAL 0.4 MG/DL (0.1-1.0); BUN/CREATININE RATIO 16; CALCIUM 9.7 MG/DL (8.5-10.1); CARBON DIOXIDE 26 MMOL/L (21-32); CHLORIDE 106 MMOL/L (98-107); CREATININE SERUM 0.83 MG/DL (0.60-1.30); GFR ESTIMATED > 60; GLUCOSE 102 MG/DL (70-105); POTASSIUM 4.2 MMOL/L (3.6-5.0); SODIUM 143 MMOL/L (135-145); TOTAL PROTEIN 7.2 GM/DL (6.4-8.2)
== END 2020-03-12 | disposition home or self-care (01) ==
LOC: ONC 13:40
PROVIDERS: ATTEND Internal Medicine Hematology & Oncology
DX: D72.829 Elevated white blood cell count, unspecified (principal)
CPT/HCPCS: 80053; 83615; 85025; 99214

== ENCOUNTER → 2020-08-01 | Outpatient (CLI) | payer BC | LOC: CARD 09:32 | PROVIDERS: ATTEND Nurse Practitioner Family | DX: I25.10 Atherosclerotic heart disease of native coronary artery without angina pectoris (principal); I31.3 Pericardial effusion (noninflammatory) | CPT/HCPCS: 93306 ==

== ENCOUNTER → 2020-10-10 | Outpatient (CLI) | payer BC ==
[~2020-10-10] VITALS: Ht 160 cm; Wt 66.0 kg
[~2020-10-10] MED LIST changes: -ACET-2715 PO; +ACET-3075 PO; +REGADENOSON 0.4 MG/5 ML SYR (LEXISCAN) IV ONE
[2020-10-10] MEDS: CATHETER FLUSH 10 ML SYR IV PRN ×2 (08:07→09:18)
[2020-10-10 09:17] VITALS: BP 116/80
--- NOTE | 2020-10-10 13:10 | STRESS TEST ---
DATE OF SERVICE: 10/10/2020 RESTING AND POST REGADENOSON TECHNETIUM-99M TETROFOSMIN SPECT CT IMAGING ORDERING PHYSICIAN: Rebecca Jiang APRN PRIMARY PHYSICIAN: Bonita Garza APRN CLINICAL DIAGNOSES: Coronary artery disease, chest discomfort. Baseline images were carried out after injection of 10.3 mCi of technetium-99m Tetrofosmin. This was followed by 0.4 mg regadenoson and 32.4 mCi of technetium-99m Tetrofosmin for stress imaging. The electrocardiogram showed sinus rhythm with incomplete right bundle branch block. The electrocardiogram did not change significantly with regadenoson infusion. The patient tolerated the procedure well. Review of images at rest and following stress does not indicate any significant perfusion defects consistent with myocardial ischemia or infarction. Gated images show normal global left ventricular systolic function with normal regional wall motion. Left ventricular ejection fraction is calculated to be 61%. Left ventricular end diastolic volume is 61 mL. TID is absent (0.96). CONCLUSIONS: 1. No evidence of any significant myocardial ischemia or infarction on this study. 2. Normal regional wall motion. 3. Normal global left ventricular systolic function with a calculated ejection fraction of 61%. Job ID: [id number] DocumentID: [id number] Dictated Date: 10/10/2020 12:37:45 Assembler Gold Frame Date: 10/10/2020 13:09:32 Dictated By: JAMIE CUADRA MD, MA, FACP, FACC,
== END ==
LOC: CARD 08:15
PROVIDERS: ATTEND Nurse Practitioner Family
DX: I25.10 Atherosclerotic heart disease of native coronary artery without angina pectoris (principal); Z72.0 Tobacco use
CPT/HCPCS: 78452; 93017; A9502

== ENCOUNTER 2021-10-06 09:00 | Day surgery (SDC) | payer BC ==
[2021-10-06] VITALS (10 sets, daily range): BP systolic 93–121; BP diastolic 63–82
[~2021-10-06] VITALS: Ht 160 cm; Wt 61.0 kg
[2021-10-06 07:33] LABS: HEMATOCRIT 45 % (35-52); HEMOGLOBIN 14.7 g/dL (11.5-16.0); MEAN CORPUSCULAR HEMOGLOBIN 31 pg (25-34); MEAN CORPUSCULAR HGB CONC 33 g/dL (32-36); MEAN CORPUSCULAR VOLUME 94 fL (80-99); MEAN PLATELET VOLUME 11.6 fL (9.0-12.2); PLATELET COUNT 182 10^3/uL (130-400); WHITE BLOOD COUNT 8.7 10^3/uL (4.3-11.0)
[2021-10-06 07:44] LABS: ALBUMIN 4.1 GM/DL (3.2-4.5); POTASSIUM 4.4 MMOL/L (3.6-5.0)
[2021-10-06 07:45] LABS: CALCIUM 9.3 MG/DL (8.5-10.1)
[2021-10-06 07:47] LABS: TOTAL PROTEIN 6.7 GM/DL (6.4-8.2)
[2021-10-06 07:49] LABS: BILIRUBIN,TOTAL 0.5 MG/DL (0.1-1.0)
[2021-10-06 07:50] LABS: CREATININE SERUM 0.8 MG/DL (0.60-1.30)
[2021-10-06 07:53] LABS: INR 0.9 (0.8-1.4); PROTHROMBIN TIME PATIENT 12.9 SEC (12.2-14.7)
[~2021-10-06 09:00] MED LIST changes: +CLON0.5T25 PO; +HEParin (CATH LAB) 2,000 ML IV ONE; +LIDOCAINE 1% INJ 20 ML 20 ML VIAL ONE; +NS IV 1000 ML 1,000 ML IV SCH; +NS IV 1000 ML 1,000 ML ONE; -REGADENOSON 0.4 MG/5 ML SYR (LEXISCAN) IV ONE; +methylPREDNISolone 125 MG (Solu-MEDROL) VIAL ONE
[2021-10-06] MEDS ORDERED: MIDAZOLAM 5 MG/5 ML (VERSED) VIAL ONE (10:02)
[2021-10-06] MEDS ORDERED: diphenhydrAMINE 50 MG/ML INJ (BENADRYL) ONE (10:02)
[2021-10-06] MEDS ORDERED: fentaNYL INJ 100 MCG/2 ML AMP ONE (10:02)
--- NOTE | 2021-10-06 10:42 | Cardiac Procedure Note-CS/ASA ---
Pre-Procedure Note Pre-Op Procedure Note H&P Reviewed The H&P was reviewed, patient examined and no changes noted. Date H&P Reviewed: Oct 06, 2021 Time H&P Reviewed: 10:00 Conscious Sedation Pre-Proced Time 10:00 ASA Score 3 For ASA 3 and 4: Consider anesthesia and medical clearance. Also, for patients with a history of failed moderate sedation consider anesthesia. Airway Lungs Heart ASA score ASA 1: a normal healthy patient ASA 2: a patient with a mild systemic disease (mid diabetes, controlled hypertension, obesity ASA 3: a patient with a severe systemic disease that limits activity (angina, COPD, prior Myocardial infarction) ASA 4: a patient with an incapacitating disease that is a constant threat to life (CHF, renal failure) ASA 5: a moribund patient not expected to survive 24 hrs. (ruptured aneurysm) ASA 6: a declared brain- patient whose organs are being harvested. For emergent operations, add the letter E after the classification Mallampati Classification Grade 2 Sedation Plan Analgesia, Amnesia, Plan communicated to team members, Discussed options with patient/fam, Discussed risks with patient/fam The patient is an appropriate candidate to undergo the planned procedure, sedation, and anesthesia. The patient immediately re-assessed prior to indication. JAMIE CUADRA MD FACP FAC CCDS Oct 06, 2021 10:42
[2021-10-06] MEDS ORDERED: NS IV 1000 ML 1,000 ML IV SCH (10:45)
[2021-10-06] MEDS ORDERED: PATIENT MAY USE OWN MEDS, ALL PO SCH (10:45)
--- NOTE | 2021-10-06 10:45 | Discharge Inst-Cardiology ---
Discharge Inst-Cardiac Discharge Medications Continued Medications: Acetaminophen (Tylenol Arthritis) 650 Mg Tablet.er 1300 MG PO Q8H PRN for PAIN-MILD, TAB Acetaminophen/Diphenhydramine (Tylenol Pm Ex-Strength Caplet) 1 Each Tablet 1 EACH PO HS, TAB Aspirin (Aspirin) 81 Mg Tab.chew 81 MG PO DAILY, TAB Atorvastatin Calcium (Lipitor) 40 Mg Tablet 40 MG PO HS, TAB Black Cohosh (Black Cohosh) 540 Mg Capsule 540 MG PO HS, CAP Cetirizine HCl (Cetirizine HCl) 10 Mg Tablet 10 MG PO DAILY, TAB Citalopram Hydrobromide (Celexa) 20 Mg Tablet 20 MG PO HS, TAB Clonazepam (Clonazepam) 0.5 Mg Tab.rapdis 0.5 MG PO PRN, TAB Clopidogrel Bisulfate (Plavix) 75 Mg Tablet 75 MG PO DAILY, TAB Metoprolol Succinate (Metoprolol Succinate) 25 Mg Tab.er.24h 25 MG PO DAILY, TAB Pediatric Multivitamin Comb#30 (Gummies Children Multivitamin) 1 Each Tab.chew 2 EACH PO HS, TAB JAMIE CUADRA MD FACP FAC CCDS Oct 06, 2021 10:45
--- NOTE | 2021-10-06 10:45 | Discharge Inst-Post CATH ---
Discharge Inst-CATH/EP Post Cardiac Cath/EP D/C Inst Follow Up/Plan F/u with Dr Mota in 2 weeks ACTIVITY * Go Home directly and rest. * Limit activity of the leg (or wrist if it was used) for 7 days including aerobics, swimming, jogging, bicycling, etc. * Restrict stair-climbing for 7 days if possible, if not, climb up with your no n-cath leg, then bring together on the same step. * Avoid lifting, pushing, pulling or excessive movement of the affected ext remity for 7 days. * Customary sexual activity may be resumed after 2 days-use caution not to use a position that strains or causes pain to the affected extremity. * No driving for 24 hours. * NO SMOKING. * Avoid straining for bowel movements for 7 days. * Gentle walking on level ground is allowed. * Returning to work will depend on the type of procedure and the results. Your doctor will discuss this with you. CALL YOUR DOCTOR FOR ANY OF THE FOLLOWING: *If bleeding from the puncture site occurs- Apply gentle pressure to site with clean cloth and call your doctor or EMS. * If a knot or lump forms under the skin, increases in size, or causes pain. * If bruising appears to be worsening or moving further down your leg instead of disappearing. * Temperature above 101 F. CARE OF YOUR GROIN INCISION; * Bruising or purple discoloration of the skin near the puncture site is common. * You may shower only, no bathtub bathing for 5 days. Be careful to avoid slipping as your leg may feel stiff. * If a closure device was used on your femoral artery, please see the attached guide regarding care of the device and your leg. * Leave dressing on FOR 24 hours. CARE OF YOUR WRIST INCISION; * Bruising or purple discoloration of the skin near the puncture site is common. * You may shower. * DO NOT submerge wrist. * Leave dressing on FOR 24 hours. JAMIE MOTA MD [facility] CCDS Oct 06, 2021 10:45
--- NOTE | 2021-10-06 14:27 | CARDIAC CATHETERIZATION ---
DATE OF SERVICE: 10/06/2021 CARDIAC CATHETERIZATION REPORT INDICATION FOR PROCEDURE: The patient is a 55-year-old lady, who is known to have coronary artery disease and who had stenting of the left anterior descending in 10/2018 and had an Alpine Xience 2.75 x 28 mm stent placed at that time. She has been having chest discomfort and she feels that it is similar to what she had had prior to her coronary stenting. Symptoms have been progressive. Given the symptoms and her significant concern over recurrent obstructive coronary artery disease, cardiac catheterization was carried out today after having obtained an informed consent. DESCRIPTION OF PROCEDURE: She was brought to the cardiac catheterization laboratory in a fasting state. Right groin was prepared and draped in the usual sterile fashion. Lidocaine 1% was used as local anesthesia. Modified Seldinger technique was used to advance a 5-Namibian sheath in the right femoral artery, a 5-Namibian JL4 catheter for left angiography, 5-Namibian JR4 catheter for the right coronary angiography, 5-Namibian pigtail catheter was used for left heart catheterization and left ventricular angiography. Angiography of the right femoral artery was carried out through the sheath. Mynx was used to achieve hemostasis following sheath removal. She tolerated the procedure well. HEMODYNAMICS: Left ventricular end-diastolic pressure following coronary angiography was approximately 18 mmHg. There is no significant pressure gradient on pullback across the aortic valve. CORONARY ANGIOGRAPHY: Left main coronary artery, left anterior descending artery, left circumflex artery, right coronary artery do not exhibit angiographically significant disease. There is a widely patent stent in the proximal left anterior descending that extends across a small caliber diagonal branch that does not exhibit significant compromise. The left circumflex and the right coronary artery does not exhibit significant disease. LEFT VENTRICULAR ANGIOGRAPHY: Left ventricular angiography was carried out in the right anterior oblique projection. Global left ventricular systolic function is normal. No regional wall motion abnormality is seen in this view and the ejection fraction is approximately 60%. CONCLUSIONS: 1. No angiographically significant obstructive coronary artery disease. There is a widely patent stent in the proximal to mid left anterior descending artery that is known to be Alpine Xience 2.75 x 28 mm that was placed in 10/2018. 2. Left ventricular end-diastolic pressure of approximately 18 mmHg. 3. Normal global left ventricular systolic function with ejection fraction of approximately 60% DISCUSSION AND RECOMMENDATIONS: Based on results of the study, it appears appropriate to continue a conservative approach. Risk factor modification has been reviewed. Current regimen is being continued. Outpatient followup is advised. Job ID: [id number] DocumentID: [id number] Dictated Date: 10/06/2021 10:52:18 Field Radio Operator Date: 10/06/2021 14:27:38 Dictated By: JAMIE CUADRA MD, MA, FACP, FACC,
== END 2021-10-06 14:00 | disposition home or self-care (01) ==
LOC: CATH 09:00 → SDC 11:06 → CATH 14:00
PROVIDERS: ATTEND Internal Medicine Cardiovascular Disease
DX: I25.119 Atherosclerotic heart disease of native coronary artery with unspecified angina pectoris (principal); I31.3 Pericardial effusion (noninflammatory); F41.9 Anxiety disorder, unspecified; F29 Unspecified psychosis not due to a substance or known physiological condition; M19.90 Unspecified osteoarthritis, unspecified site; J44.9 Chronic obstructive pulmonary disease, unspecified; N28.1 Cyst of kidney, acquired; I47.1 Supraventricular tachycardia; F17.210 Nicotine dependence, cigarettes, uncomplicated; E78.2 Mixed hyperlipidemia; Z91.040 Latex allergy status; Z79.82 Long term (current) use of aspirin; Z79.899 Other long term (current) drug therapy; Z79.2 Long term (current) use of antibiotics; Z79.02 Long term (current) use of antithrombotics/antiplatelets; Z95.5 Presence of coronary angioplasty implant and graft
CPT/HCPCS: 80053; 80061; 85027; 85610; 85730; 87081; 93458; C1760; C1894; 36415